=== PATIENT | female | born 1980 | race Caucasian/White ===

== ENCOUNTER 2016-08-05 13:11 | Day surgery (SDC) | payer BC ==
[~2016-08-05 13:11] MED LIST: ANUSOL-HC25 MG PR; AZULFIDINE500 M1 PO; BENTYL20 MG PO; CEFDINIR300 MG PO; CIPRO500 M2 PO; CLARITIN-D PO; CLARITIN5 MG PO; COLACE100 MG PO; DITROPAN5 MG PO; ELMIRON100 MG PO; FLAGYL500 MG PO; FLUOXETINE; FOLIC ACID0.4 MG PO; FOLIC ACID1 M1 PO; IBUPROFEN600 M1 PO; LEVAQUIN500 MG PO; LIALDA1.2 G; LIALDA1.2 G PO; METRONIDAZOLE500 M1 PO; MOTRIN800 MG PO; MUSCLE RELAXANT; NORCO 5-325 TA1 EACH PO; NORCO 5/3251 TA1 PO; ONDANSETRON HCL4 M1 PO; OXYBUTYNIN CHLOR5 M2 PO; OXYCODONE/APAP PO; PERCOCET 5/3251 TAB PO; PERCOCET 5MG/AP1 TA1 PO; PRENATAL1 EACH; PROTONIX40 M2 PO; PROTONIX40 MG PO; RHINOCORT ALL8.43 ML; SINGULAIR5 MG PO; VANCOMYCIN25 MG/1 ML PO; VISTARIL50 MG; VITAMIN D31000 UNI3 PO; ZOFRAN ODT4 MG PO; ZOFRAN ODT4 MG/UDTAB PO; ZOFRAN4 M1 PO; ZOFRAN4 MG PO; ZOLOFT100 M1 PO; ZOSYN; [UNRECOGNIZED DRUG - OTHER]
== END 2016-08-05 19:20 ==
LOC: SRG 13:11 → SHSB 13:12 → ORE 15:36 → PACU 17:03 → SHSB 18:00
PROC: 09BV4ZZ Excision of Left Ethmoid Sinus, Percutaneous Endoscopic Approach (ICD-10-PCS; principal; 2016-08-05)
PROC: 099T4ZZ Drainage of Left Frontal Sinus, Percutaneous Endoscopic Approach (ICD-10-PCS; 2016-08-05)
DX: J32.8 Other chronic sinusitis (principal); E66.01 Morbid (severe) obesity due to excess calories; M19.90 Unspecified osteoarthritis, unspecified site; F41.9 Anxiety disorder, unspecified; F32.9 Major depressive disorder, single episode, unspecified; F17.210 Nicotine dependence, cigarettes, uncomplicated; K50.90 Crohn's disease, unspecified, without complications; Z79.899 Other long term (current) drug therapy; Z88.1 Allergy status to other antibiotic agents; Z90.49 Acquired absence of other specified parts of digestive tract; Z98.890 Other specified postprocedural states
CPT/HCPCS: C1726; C2625